=== PATIENT | female | born 1940 | race Caucasian/White ===

== ENCOUNTER 2020-12-18 14:15 | Emergency (ER) | payer MEDICARE, SELFPAY ==
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
[2020-12-18 14:44] VITALS: BP 142/67; BP 151/60; PULSE 80; RESP 16; TEMP 36.6; O2SAT 97; BMI 30.2
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
[2020-12-18 16:00] VITALS: BP 162/72; PULSE 76; RESP 16; TEMP 36.7; O2SAT 96
[2020-12-18 16:25] LABS: MANUAL DIFF FLAG NO
[2020-12-18 16:26] LABS: Basophils Percent Auto 0.2 % (0-2); Eosinophils Absolute Auto 0.1 X10*3/uL (0.0-0.4); Eosinophils Percent Auto 0.9 % (0-4); Hematocrit 36.8 % (37-47); Hemoglobin 11.4 g/dl (12.0-16.0); Imm Gran Pct Auto 0.8 % (0.0-0.4); Lymphocytes Absolute Auto 1.5 X10*3/uL (1.2-4.9); Lymphocytes Percent Auto 11.6 % (20-40); Mean Corpuscular Hemoglobin 26.1 pg (27.0-33.0); Mean Corpuscular Volume 84.2 fL (80-98); Mean Platelet Volume 9.2 fL (9.4-12.3); Monocytes Absolute Auto 0.8 X10*3/uL (0.1-1.2); Neutrophils Absolute Auto 10.3 X10*3/uL (2.0-8.3); Neutrophils Percent Auto 80.5 % (45-73); Platelet Count 259 X10*3/uL (160-400); Red Blood Count 4.37 X10*6/uL (4.20-5.50); Red Cell Distribution Width 16.5 % (11.0-16.0); White Blood Count 12.8 X10*3/uL (4.8-10.8)
--- NOTE | 2020-12-18 16:36 | PC.NURSE ---
PATIENT LABS WERE DRAWN BY THIS PCT .
[2020-12-18 16:40] LABS: Anion Gap 14 (12-20); Blood Urea Nitrogen 16 mg/dL (9-16); Calcium 8.4 mg/dL (8.4-10.2); Carbon Dioxide 23 mmol/L (22-29); Chloride 106 mmol/L (96-108); Creatinine Clr Calc Pharmacy 50.2; Estimated Glomerular Filt Rate > 60; Glucose Random 113 mg/dL (60-115); Lipase 18 U/L (8-78); Potassium 4.1 mmol/L (3.3-5.1); Sodium 139 mmol/L (135-145)
[2020-12-18 16:46] LABS: B Type Natriuretic Peptide 76 pg/mL (<100); Troponin-I High Sensitivity < 3.5 ng/L (<3.5-17.0)
[2020-12-18] MEDS: Lidocaine HCl 2 % MPF 5 ML VIAL 10 ML INFILTRATI (17:28)
--- NOTE | 2020-12-18 17:45 | PC.NURSE ---
Dr shah to bedside for traction to right hand and splint, pt awaits repeat imaging at this time. appears comfortable
[2020-12-18] MEDS: Morphine Sulfate 2 MG/ML CARTRIDGE IM (18:44)
[2020-12-18 18:47] VITALS: BP 143/50; PULSE 85; RESP 16; O2SAT 96
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
[2020-12-18 19:04] VITALS: BP 124/49; PULSE 74; RESP 16; TEMP 37.1; O2SAT 94
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
[2020-12-18 19:56] VITALS: BP 130/47; PULSE 84; RESP 16; TEMP 36.9; O2SAT 94
--- NOTE | 2020-12-18 19:58 | PC.NURSE ---
PATIENT WAS UNDRESS AND CHANGE INTO HOSPITAL ATTIRE BY PCT ROSY ,AND MY SELF
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
--- NOTE | 2020-12-18 20:07 | PC.NURSE ---
Pt placed on 2lpm via nc for low 02 sat 93% on ra s/p morphine given
--- NOTE | 2020-12-18 20:10 | PC.NURSE ---
PATIENT WAS ASSISTED ON BEDPAN BY THIS PCT .
[2020-12-18 20:34] LABS: COVID-19 Test Negative (Negative)
--- NOTE | 2020-12-18 20:52 | PC.NURSE ---
Report given to Byron HAMILTON
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
== END 2020-12-18 21:16 | disposition short-term general hospital (02) ==
PROVIDERS: Emergency Medicine; Emergency Provider Internal Medicine; PCP Internal Medicine
DX: S22.43XA Multiple fractures of ribs, bilateral, initial encounter for closed fracture (principal); S52.352A Displaced comminuted fracture of shaft of radius, left arm, initial encounter for closed fracture; S52.602A Unspecified fracture of lower end of left ulna, initial encounter for closed fracture; S22.20XA Unspecified fracture of sternum, initial encounter for closed fracture; S22.21XA Fracture of manubrium, initial encounter for closed fracture; V47.5XXA Car driver injured in collision with fixed or stationary object in traffic accident, initial encounter; W22.11XA Striking against or struck by driver side automobile airbag, initial encounter; Y93.89 Activity, other specified; Y92.414 Local residential or business street as the place of occurrence of the external cause; Y99.9 Unspecified external cause status; Z20.822 Contact with and (suspected) exposure to COVID-19
CPT/HCPCS: 29125; 36415; 70450; 71045; 71250; 72125; 73090; 73100; 73110; 73130; 80048; 83690; 83880; 84484; 85025; 87635; 93005; 96372; 99284; 99285; 99291; J2270

== ENCOUNTER 2023-08-07 19:49 | Observation (INO) | payer MEDICARE, SELFPAY ==
[2023-08-07] VITALS (7 sets, daily range): BP systolic 134–210; BP diastolic 65–108; PULSE 67–92; RESP 16; TEMP 36.8; O2SAT 96–99; BMI 33.3
--- NOTE | 2023-08-07 | ECG_ITS ---
Test Reason : CHEST PAIN Blood Pressure : / mmHG Vent. Rate : 090 BPM Atrial Rate : 090 BPM P-R Int : 168 ms QRS Dur : 068 ms QT Int : 354 ms P-R-T Axes : 060 028 049 degrees QTc Int : 433 ms Normal sinus rhythm with sinus arrhythmia Normal ECG Borderline ECG When compared with ECG of 18-DEC-2020 14:36, No significant change was found Referred By: Generic ED Physician Electronically Signed By:ION BHAKTA MD
--- NOTE | ~2023-08-07 | XR_ITS ---
EXAMINATION: XR CHEST CLINICAL INFORMATION: Chest pain and shortness of breath COMPARISON: Previous chest x-ray and chest CT from 2020 TECHNIQUE: Frontal view of the chest was obtained. FINDINGS: The cardiac silhouette does not appear enlarged. There is increased density over the heart likely corresponding to an esophageal hernia. Hilar and mediastinal contours are otherwise unremarkable. The lungs are clear. No pleural effusion or pneumothorax. Post kyphoplasty changes to the lower thoracic spine. XR/XR chest 1V IMPRESSION: No evidence for acute disease in the chest.
--- NOTE | ~2023-08-07 | US_ITS ---
EXAMINATION: US VENOUS ULTRASOUND WITH DOPPLER LOWER EXTREMITY, BILATERAL CLINICAL INFORMATION: Edema COMPARISON: None available. TECHNIQUE: Ultrasound of the deep veins is performed from the hip to the calf with compression sonography and color and pulse Doppler assessment. Spectral analysis with color-flow imaging is performed. FINDINGS: RIGHT: There is normal venous compression and respiratory variation and augmented flow. The visualized common femoral vein, superficial femoral vein, profunda femoral vein, popliteal vein, and the trifurcation region shows no evidence of deep venous thrombosis. There is no significant popliteal fossa cyst. LEFT: There is normal venous compression and respiratory variation and augmented flow. The visualized common femoral vein, superficial femoral vein, profunda femoral vein, popliteal vein, and the trifurcation region shows no evidence of deep venous thrombosis. There is no significant popliteal fossa cyst. US/US venous duplex LE BI IMPRESSION: No DVT demonstrated in the bilateral lower extremity.
--- NOTE | 2023-08-07 19:56 | PC.NURSE ---
on arrival pt has iv via ems; labs obtained. ekg obtained. Dr. Delgado notified of ekg abnormality. awaiting lab results.
--- NOTE | 2023-08-07 20:10 | ED.CHESTPAIN ---
HPI - Chest Pain General Chief Complaint: Chest Pain Stated Complaint: chest pressure, diff breathing,weak Time Seen by Provider: 08/07/23 20:01 Source: patient Mode of arrival: ambulatory Limitations: no limitations History of Present Illness HPI narrative: Patient'shistory of anxiety no history of coronary artery disease was resting watching TV all of a sudden noticed warm feeling with nausea and mid chest pressure started at 1900 also felt slight short of breath EMS came and gave her aspirin and nitroglycerin spray and patient felt better in an hour on arrival patient does not have any chest pain patient never had similar feeling in the past never had any cardiac workup done no palpitation. Patient denies any anxiety depression at the time of chest pain Related Data Allergies Allergy/AdvReac Type Severity Reaction Status Date / Time meperidine [From Demerol] Allergy Palpitation Verified 08/07/23 20:00 s shellfish derived AdvReac Weakness Verified 08/07/23 20:00 Review of Systems Review of Systems: Yes all other systems are reviewed and are negative [facility] Past Medical History Medical History GERD (gastroesophageal reflux disease) Surgical History 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, total Social History Social History Smoked in Last 30 Days: No Use of substances other than those prescribed or required for medical reasons: No Advance Directives: No Advance Directives Information Provided: No Do you have a plan to hurt others: No Plan Physical Exam Vital Signs: Vital Signs: Last Vital Signs Temp 98.2 F 08/07/23 19:55 Pulse 70 08/07/23 23:07 Resp 16 08/07/23 23:07 BP 149/68 H 08/07/23 23:07 Pulse Ox 96 08/07/23 23:07 O2 Del Method Room Air 08/07/23 23:07 BMI result Body Mass Index 33.3 Appearance: Alert. Oriented X3. No acute distress. Eyes: No pallor or icterus ENT: Pharynx normal. Oral Mucosa moist Neck: Normal inspection. Neck supple. CVS: Normal heart rate and rhythm. Pulses normal. Respiratory: No respiratory distress. Equal air entry bilateral, no wheezing/rales/rhonchi Abdomen: Soft and nontender. Bowel sounds are present, no mass palpable, no CVA tenderness Skin: Skin warm and dry. Normal skin color. Normal skin turgor. Extremities: No lower extremity edema. No calf tenderness Neuro: Oriented X 3. No motor deficit. Medications Administered Discontinued Medications Generic Name Dose Route Start Last Admin Trade Name Freq PRN Reason Stop Dose Admin Metoprolol Tartrate 25 mg 08/07/23 20:32 08/07/23 20:44 Metoprolol Tartrate 25 Mg Tablet PO 08/07/23 20:33 25 mg ONCE ONE Administration Protocol Nitroglycerin 0.5 inch 08/07/23 20:32 08/07/23 20:44 Nitroglycerin 2 % Oint 1 Gm Packet TRANSDERMA 08/07/23 20:33 0.5 inch ONCE ONE Administration Medical Decision Making Medical Decision Making [facility] Narrative: Patient 83 years old with significant chest discomfort without any acute ST elevation initial troponin was negative repeat troponin was 15.4 patient does not have any chest pain after arrival already received aspirin and nitro paste was applied beta jolly was given will admit patient to rule out ACS Differential Diagnosis Differential Diagnoses: The differential diagnosis associated with the presentation includes ACS/esophageal spasms/GERD/anxiety pneumonia/pneumothorax Admission/Observation Consideration of admission/observation: Escalation of care including admission/observation considered Consult Healthcare Provider Management of the patient was discussed with: Hospitalist Lab Data [facility] Lab Attestation statement: I reviewed the patient's lab results. 08/07/23 20:08 08/07/23 20:08 Labs: Lab Results 08/07/23 08/07/23 Range/Units 20:08 22:08 WBC 5.4 (4.8-10.8) X10*3/uL RBC 4.22 (4.20-5.50) X10*6/uL Hgb 10.4 L (12.0-16.0) g/dl Hct 33.5 L (37.0-47.0) % MCV 79.4 L (80.0-98.0) fL MCH 24.6 L (27.0-33.0) pg MCHC 31.0 (31.0-35.0) g/dl RDW 16.4 H (11.0-16.0) % Plt Count 237 (160-400) X10*3/uL MPV 8.3 L (9.4-12.3) fL Immature Gran % (Auto) 0.6 H (0.0-0.4) % Neut % (Auto) 39.8 L (45-73) % Lymph % (Auto) 47.4 H (20-40) % [place] % (Auto) 7.1 (2-11) % Eos % (Auto) 4.5 H (0-4) % Baso % (Auto) 0.6 (0-2) % Lymph # (Auto) 2.6 (1.2-4.9) X10*3/uL [place] # (Auto) 0.4 (0.1-1.2) X10*3/uL Eos # (Auto) 0.2 (0.0-0.4) X10*3/uL Baso # (Auto) 0.0 (0.0-0.2) X10*3/uL Abs Immat Gran (auto) 0.03 (0.00-0.03) X10*3/uL Absolute Neuts (auto) 2.2 (2.0-8.3) x10*3/uL Absolute Nucleated RBC 0.000 (0.0-0.012) X10*3/uL Nucleated RBC % (auto) 0.0 (0.0-0.2) /100WBC Sodium 141 (135-145) mmol/L Potassium 4.1 (3.3-5.1) mmol/L Chloride 104 (96-108) mmol/L Carbon Dioxide 29 (22-29) mmol/L Anion Gap 12 (12-20) BUN 16 (9-16) mg/dL Creatinine 0.81 (0.5-1.4) mg/dL Estim Creat Clear Calc 45.6 Estimated GFR > 60 Random Glucose 107 (60-115) mg/dL Calcium 8.8 (8.4-10.2) mg/dL Total Bilirubin 0.2 (0.0-1.0) mg/dL AST 28 (5-31) U/L ALT 15 (0-31) U/L Alkaline Phosphatase 106 (39-117) U/L Troponin I High Sens < 2.7 15.4 D (<3.5-17.0) ng/L B-Natriuretic Peptide 80 (<100) pg/mL Total Protein 7.1 (6.5-8.0) g/dL Albumin 3.9 (3.5-5.0) g/dL Independent Interpretation I performed an independent interpretation of an: EKG and Plain X-Ray Interpretation: Normal sinus rhythm heart rate 90 beats per minute normal interval normal axis no acute ST T wave changes no acute ischemia no ST elevation Radiology Impression Discussion of test interpretation with radiology: I have reviewed the radiologist's reading. Critical Care Time Critical Care Time Critical Care Time: Yes Total Critical Care Time: 45 Attestation: The patient was critically ill with a high probability of imminent or life threatening deterioration. I spent greater than ?45??minutes of discontinuous time evaluating the patient,delivering critical care at the bedside, discussing and evaluating pertinent data with consultants. Critical care time does not include time spent performing separately billable procedures or teaching. Total time spent performing critical care was 40???minutes. Discharge Plan Discharge Clinical Impression: Chest pain Patient Disposition: Admitted As Inpatient Print Language: Somali
[2023-08-07 20:12] LABS: MANUAL DIFF FLAG NO
[2023-08-07 20:15] LABS: Basophils Percent Auto 0.6 % (0-2); Eosinophils Absolute Auto 0.2 X10*3/uL (0.0-0.4); Eosinophils Percent Auto 4.5 % (0-4); Hematocrit 33.5 % (37.0-47.0); Hemoglobin 10.4 g/dl (12.0-16.0); Imm Gran Abs Auto 0.03 X10*3/uL (0.00-0.03); Imm Gran Pct Auto 0.6 % (0.0-0.4); Lymphocytes Absolute Auto 2.6 X10*3/uL (1.2-4.9); Lymphocytes Percent Auto 47.4 % (20-40); Mean Corpuscular Hemoglobin 24.6 pg (27.0-33.0); Mean Corpuscular Volume 79.4 fL (80.0-98.0); Mean Platelet Volume 8.3 fL (9.4-12.3); Monocytes Absolute Auto 0.4 X10*3/uL (0.1-1.2); Monocytes Percent Auto 7.1 % (2-11); Neutrophils Absolute Auto 2.2 x10*3/uL (2.0-8.3); Neutrophils Percent Auto 39.8 % (45-73); Platelet Count 237 X10*3/uL (160-400); Red Blood Count 4.22 X10*6/uL (4.20-5.50); Red Cell Distribution Width 16.4 % (11.0-16.0); White Blood Count 5.4 X10*3/uL (4.8-10.8)
[2023-08-07 20:29] LABS: Alanine Aminotransferase 15 U/L (0-31); Albumin Level 3.9 g/dL (3.5-5.0); Alkaline Phosphatase 106 U/L (39-117); Anion Gap 12 (12-20); Aspartate Amino Transferase 28 U/L (5-31); Bilirubin Total 0.2 mg/dL (0.0-1.0); Blood Urea Nitrogen 16 mg/dL (9-16); Calcium 8.8 mg/dL (8.4-10.2); Carbon Dioxide 29 mmol/L (22-29); Chloride 104 mmol/L (96-108); Creatinine Clr Calc Pharmacy 45.6; Estimated Glomerular Filt Rate > 60; Glucose Random 107 mg/dL (60-115); Potassium 4.1 mmol/L (3.3-5.1); Sodium 141 mmol/L (135-145); Total Protein 7.1 g/dL (6.5-8.0)
[2023-08-07 20:35] LABS: B Type Natriuretic Peptide 80 pg/mL (<100)
[2023-08-07] MEDS: Metoprolol Tartrate 25 MG TABLET PO (20:44)
[2023-08-07] MEDS: Nitroglycerin 2 % Oint 1 GM Packet 0.5 INCH TRANSDERMA (20:44)
[2023-08-07 20:52] LABS: Troponin-I High Sensitivity < 2.7 ng/L (<3.5-17.0)
--- NOTE | 2023-08-07 22:20 | PC.NURSE ---
pt reports pressure has improved and is intermittent. repeat trop sent to lab. at bedside. vss. call dean within reach.
[2023-08-07 22:42] LABS: Troponin-I High Sensitivity 15.4 ng/L (<3.5-17.0)
--- NOTE | 2023-08-08 01:54 | PC.NURSE ---
pt ambulating around hallway with with steady gait, no acute distress noted. given recliner at this time.
--- NOTE | 2023-08-08 03:12 | PM.IMHP ---
History of Present Illness Date of Service: 08/08/23 Attending physician on admission: Kenrick Jordan Chief Complaint: Chest pressure Kasie Kessler is 83 years old woman with past medical history significant for GERD was brought to the emergency department complaining of event of sudden onset of chest pain that started last night when she was ready to eat it was associated with shortness on breath. She localized the pain in the middle of the chest without radiation and described it as a pressure. She denied any associated headache, sweating, nausea, vomiting, cough, fevers chills. She denied any acute gastrointestinal or genitourinary symptoms. She denied tobacco smoking, alcohol abuse or illicit drug use. Patient denies history of heart disease, stroke, hypertension, hyperlipidemia or diabetes mellitus. She received treatment with nitroglycerin and aspirin by EMS. She thinks that the nitroglycerin head to improve pain. On my evaluation she was free of chest pain. In the ED, she was found to have hypertension (max 190/76). Blood workup showed no leukocytosis. Hemoglobin is 10.4 (it was 11.4 in 2020) with elevated MCV and RDW. Platelets are normal. LFTs, renal function and lipase are normal First trop is 2.7 and most recent is 15.4. BNP is normal. CXR is negative. ECG showed normal sinus rhythm with sinus arrhythmia with a obvious significant ischemic change. ED tx: Nitroglycerin 0.5 mg transdermal, metoprolol 25 mg p.o. Review of Systems Review of Systems: All 12 systems were reviewed and normal except as noted in HPI. [facility] Medical History (Updated 08/08/23 @ 03:30 by Kenrick Jordan MD) Osteoporosis GERD (gastroesophageal reflux disease) Surgical History 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, total Social History Smoked in Last 30 Days: No Use of substances other than those prescribed or required for medical reasons: No Advance Directives: No Advance Directives Information Provided: No Do you have a plan to hurt others: No Plan Meds Allergies Allergy/AdvReac Type Severity Reaction Status Date / Time meperidine [From Demerol] Allergy Palpitation Verified 08/07/23 20:00 s shellfish derived AdvReac Weakness Verified 08/07/23 20:00 Active Medications: Current Medications Acetaminophen (Acetaminophen 325 Mg Tablet) 975 mg PO Q6H PRN PRN Reason: mild pain, headache or fever Aspirin (Aspirin Enteric Coated 81 Mg Tablet.Dr) 81 mg PO DAILY [facility] Omeprazole (Omeprazole 20 Mg Capsule.Dr) 20 mg PO DAILY [facility] Ropinirole HCl (Ropinirole Hcl 0.25 Mg Tablet) 0.25 mg PO ONCE PRN PRN Reason: Restless legs Sodium Chloride (0.9 % Sodium Chloride Flush 3 Ml Syringe) 3 ml IVFLUSH QSHIFT OPAL Physical Exam Vital Signs and Narrative: Vital Signs: Last Vital Signs Temp 98.2 F 08/07/23 19:55 Pulse 70 08/07/23 23:07 Resp 16 08/07/23 23:07 BP 149/68 H 08/07/23 23:07 Pulse Ox 96 08/07/23 23:07 O2 Del Method Room Air 08/07/23 23:07 BMI result Body Mass Index 33.3 Constitutional - Awake and Alert, No apparent distress Eyes - PERRLA, EOMI Heart - RRR Lungs - Normal lung expansion, Normal respiratory effort, No respiratory distress, CTA bilaterally Abdomen - NT / ND; +BS; No rebound or guarding Extremities - Pitting edema to the lower extremities. Musculoskeletal - Normal inspection, normal ROM Skin - Warm/Dry Neurological - Alert & oriented x3. No focal weakness. Normal speech. Psychological - Appropriate affect Results Labs 08/07/23 20:08 08/07/23 20:08 Labs: Laboratory Results - last 24 hr 08/07/23 08/07/23 20:08 22:08 MCV 79.4 L MCH 24.6 L MCHC 31.0 RDW 16.4 H Plt Count 237 MPV 8.3 L Immature Gran % (Auto) 0.6 H Neut % (Auto) 39.8 L Lymph % (Auto) 47.4 H [place] % (Auto) 7.1 Eos % (Auto) 4.5 H Baso % (Auto) 0.6 Lymph # (Auto) 2.6 [place] # (Auto) 0.4 Eos # (Auto) 0.2 Baso # (Auto) 0.0 Abs Immat Gran (auto) 0.03 Absolute Neuts (auto) 2.2 Absolute Nucleated RBC 0.000 Nucleated RBC % (auto) 0.0 Anion Gap 12 Estim Creat Clear Calc 45.6 Estimated GFR > 60 Random Glucose 107 Calcium 8.8 Total Bilirubin 0.2 AST 28 ALT 15 Alkaline Phosphatase 106 Troponin I High Sens < 2.7 15.4 D B-Natriuretic Peptide 80 Total Protein 7.1 Albumin 3.9 Imaging Radiologist's Impressions: Impressions Chest X-Ray 08/07/23 20:21 IMPRESSION: No evidence for acute disease in the chest. Assessment and Plan (1) Chest pain: Qualifiers: Chest pain type: unspecified Qualified Code(s): R07.9 - Chest pain, unspecified Status: Acute (2) Bilateral leg edema: Status: Acute (3) Microcytic anemia: Status: Acute (4) Restless legs: Status: Acute Plan Kasie Kessler is 83 years old woman presents with: Chest pain. Keeping observation. Telemetry. Aspirin 81 mg p.o. daily. Check hemoglobin A1c and lipid panel. Repeat troponin. Obtain TTE. Cardiology consult for further recommendations. Lower extremity edema, bilateral. Bilateral LE venous US. GERD. Continue PPI. Microcytic anemia. Likely iron deficiency. Anemia workup. Need to follow by GI as an outpatient. Restless legs. Likely restless legs syndrome (associated to iron deficiency). Requip at bedtime as needed. Osteoporosis. Taking Fosamax weekly. Code status: Full DVT prophylaxis: SCDs. Early ambulation. Quality Stroke Does the patient have a stroke diagnosis?: No VTE Prior VTE?: No VTE Risk Level:: Medical - moderate - high VTE Device Contraindication: N/A - Device Ordered VTE Drug Contraindication: Treatment Not Indicated
[2023-08-08 03:18] VITALS: BP 121/48; PULSE 68; RESP 18; TEMP 36.8; O2SAT 94
[2023-08-08 06:19] VITALS: BP 131/53; PULSE 73; RESP 18; TEMP 36.8; O2SAT 96
[2023-08-08 06:21] LABS: MANUAL DIFF FLAG NO
[2023-08-08 06:25] LABS: Basophils Percent Auto 0.4 % (0-2); Eosinophils Absolute Auto 0.1 X10*3/uL (0.0-0.4); Eosinophils Percent Auto 2.5 % (0-4); Hematocrit 31.1 % (37.0-47.0); Hemoglobin 9.6 g/dl (12.0-16.0); Imm Gran Abs Auto 0.01 X10*3/uL (0.00-0.03); Imm Gran Pct Auto 0.2 % (0.0-0.4); Immature Retic Fraction 23.2 % (3.0-15.9); Lymphocytes Absolute Auto 1.8 X10*3/uL (1.2-4.9); Lymphocytes Percent Auto 37.9 % (20-40); Mean Corpuscular HGB Conc 30.9 g/dl (31.0-35.0); Mean Corpuscular Hemoglobin 23.6 pg (27.0-33.0); Mean Corpuscular Volume 76.4 fL (80.0-98.0); Mean Platelet Volume 8.6 fL (9.4-12.3); Monocytes Absolute Auto 0.4 X10*3/uL (0.1-1.2); Neutrophils Absolute Auto 2.4 x10*3/uL (2.0-8.3); Platelet Count 227 X10*3/uL (160-400); Red Blood Count 4.07 X10*6/uL (4.20-5.50); Red Cell Distribution Width 16.5 % (11.0-16.0); Reticulocyte Percent 1.1 % (0.5-1.8); Reticulocytes Absolute 0.042 X10*6/uL (0.026-0.095); White Blood Count 4.8 X10*3/uL (4.8-10.8)
[2023-08-08 06:31] LABS: D Dimer High Sensitivity 263 NG/ML
[2023-08-08 06:35] LABS: Estimated Average Glucose 120 mg/dL; Hemoglobin A1c % 5.8 % (<6.0)
[2023-08-08 06:38] LABS: Cholesterol 204 mg/dL (<200); HDL Cholesterol 63 mg/dL (>40); LDL Cholesterol Calculated 122 mg/dL (<100); Triglycerides 96 mg/dL (<150)
[2023-08-08 06:43] LABS: Troponin-I High Sensitivity 10.4 ng/L (<3.5-17.0)
[2023-08-08 06:46] LABS: Anion Gap 9 (12-20); Blood Urea Nitrogen 14 mg/dL (9-16); Carbon Dioxide 28 mmol/L (22-29); Chloride 106 mmol/L (96-108); Creatinine Clr Calc Pharmacy 51.9; Estimated Glomerular Filt Rate > 60; Glucose Random 113 mg/dL (60-115); Iron 43 mcg/dL (30-160); Percent Iron Saturation 14 % (15-50); Sodium 139 mmol/L (135-145); Total Iron Binding Capacity 311 mcg/dL (228-428); Unsaturated Iron Binding 268 ug/dL
[2023-08-08 06:47] LABS: Reflex LDLD? No
[2023-08-08 06:57] LABS: Ferritin 13 ng/mL (10-250)
[2023-08-08 07:10] LABS: Folate 14.3 ng/mL (> or = 4.0); Vitamin B12 1087 pg/mL (200-900)
--- NOTE | 2023-08-08 09:00 | P.CONCA_ITS ---
History of Present Illness History of Present Illness Date of Service: 08/08/23 Requesting physician: Sadiq Amin Consult reason: chest pain Chief complaint: Chest pain Narrative: I was consulted to see Jacey in cardiology consultation today for acute onset chest discomfort. She has a pleasant 83-year-old woman with prior history of restless leg syndrome, acid reflux disease with hiatal hernia, came to the hospital with sudden-onset chest discomfort. She says she was in usual state of health yesterday, prepping something to eat with her not in any severe distress. Suddenly said that she felt like she had to go to the bathroom and got lightheaded. Then she got short of breath and sudden-onset retrosternal chest discomfort were described as pressure. Symptoms persisted and called 911. EN route to the hospital she did get sublingual nitroglycerin and in the hospital she got nitroglycerin. Symptoms gradually subsided over 2 hours. She had mild chest pressure persistent for some time. EKG on initial presentation was within normal limits. Her troponins have been flat and normal. Symptoms have remained resolved. She does have intermittent symptoms of dysphagia and her food sometimes gets stuck. She does take Prilosec. Does see GI physician at [facility]. She has never had any significant cardiac issues in the past. No recent exertional symptoms. Denies any lightheadedness, syncope. Review of Systems 2 Constitutional: Constitutional: Reports no additional constitutional complaints Eyes: Eyes: Reports no additional eye complaints ENT: Reports system reviewed and no additional complaints, except as documented Cardiovascular: Cardiovascular: Reports no additional cardiovascular complaints Respiratory: Respiratory: Reports no additional respiratory complaints Gastrointestinal: Gastrointestinal: Reports no additional gastrointestinal complaints Genitourinary: Genitourinary: Reports no additional female genitourinary complaints Musculoskeletal: Musculoskeletal: Reports no additional musculoskeletal complaints Integumentary/Breasts: Skin/Breast: Reports system reviewed and no additional complaints, except as docu Psychiatric: Psychiatric: Reports no additional psychiatric complaints PMFSH Past Medical History Medical History Osteoporosis GERD (gastroesophageal reflux disease) Surgical History Surgical History 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, total Social History Social History Patient Tobacco Use Status: Never used Tobacco Smoked in Last 30 Days: No Use of substances other than those prescribed or required for medical reasons: No Advance Directives: No Advance Directives Information Provided: No Do you have a plan to hurt others: No Plan Nutrition Risks: No Nutritional Risk Meds Allergies Allergy/AdvReac Type Severity Reaction Status Date / Time meperidine [From Demerol] Allergy Palpitation Verified 08/07/23 20:00 s shellfish derived AdvReac Weakness Verified 08/07/23 20:00 Active Medications: Current Medications Acetaminophen (Acetaminophen 325 Mg Tablet) 975 mg PO Q6H PRN PRN Reason: mild pain, headache or fever Aspirin (Aspirin Enteric Coated 81 Mg Tablet.Dr) 81 mg PO DAILY OPAL Omeprazole (Omeprazole 20 Mg Capsule.Dr) 20 mg PO DAILY OPAL Ropinirole HCl (Ropinirole Hcl 0.25 Mg Tablet) 0.25 mg PO ONCE PRN PRN Reason: Restless legs Sodium Chloride (0.9 % Sodium Chloride Flush 3 Ml Syringe) 3 ml IVFLUSH QSHIFT [facility] Physical Exam 2 Vital Signs: Vital Signs: Last Vital Signs Temp 98.3 F 08/08/23 06:19 Pulse 73 08/08/23 06:19 Resp 18 08/08/23 06:19 BP 131/53 L 08/08/23 06:19 Pulse Ox 96 08/08/23 06:19 O2 Del Method Room Air 08/08/23 06:19 BMI result Body Mass Index 33.3 Const: General: cooperative, comfortable, no acute distress, alert and awake Nutritional Appearance: obese Orientation/consciousness: patient oriented x3 Limitations: no limitations HEENT: Head: Yes normocephalic and Yes atraumatic Neck: Neck: Yes trachea midline, Yes supple and Yes no JVD Chest: Chest palpation & inspection: abnormal inspection of the chest kyphotic Resp: Effort & Inspection: normal respiratory effort Auscultation: clear to auscultation bilaterally Cardio: Jugular venous distension: no JVD Palpation: normal PMI Rate: r egular rate Rhythm: regular rhythm Heart sounds: S1 normal heart sound present, S2 normal heart sound present, no click, no gallops, no murmurs and no rubs GI: Auscultation: normal bowel sounds Skin: General skin exam: no rashes or lesions noted Neuro: General: patient oriented x3 and no focal motor deficits Extrem: General: Yes no clubbing, cyanosis or edema Psych: Appearance: grossly normal Objective Labs and Meds 08/08/23 06:15 08/08/23 06:15 Lab results: Laboratory Results - last 24 hr 08/07/23 08/07/23 08/08/23 20:08 22:08 06:15 WBC 5.4 4.8 RBC 4.22 4.07 L Hgb 10.4 L 9.6 L Hct 33.5 L 31.1 L MCV 79.4 L 76.4 L MCH 24.6 L 23.6 L MCHC 31.0 30.9 L RDW 16.4 H 16.5 H Plt Count 237 227 MPV 8.3 L 8.6 L Immature Gran % (Auto) 0.6 H 0.2 Neut % (Auto) 39.8 L 50.0 Lymph % (Auto) 47.4 H 37.9 [place] % (Auto) 7.1 9.0 Eos % (Auto) 4.5 H 2.5 Baso % (Auto) 0.6 0.4 Lymph # (Auto) 2.6 1.8 [place] # (Auto) 0.4 0.4 Eos # (Auto) 0.2 0.1 Baso # (Auto) 0.0 0.0 Abs Immat Gran (auto) 0.03 0.01 Absolute Neuts (auto) 2.2 2.4 Absolute Nucleated RBC 0.000 0.000 Nucleated RBC % (auto) 0.0 0.0 Absolute Retic 0.042 Percent Retic 1.1 Immature Retic Fraction 23.2 H Retic Hgb Equivalent 24.0 L D-Dimer High Sensitivty 263 Sodium 141 139 Potassium 4.1 4.0 Chloride 104 106 Carbon Dioxide 29 28 Anion Gap 12 9 L BUN 16 14 Creatinine 0.81 0.71 Estim Creat Clear Calc 45.6 51.9 Estimated GFR > 60 > 60 Random Glucose 107 113 Estimat Average Glucose 120 Hemoglobin A1c % 5.8 Calcium 8.8 9.0 Iron 43 TIBC 311 % Saturation 14 L Unsat Iron Binding 268 Ferritin 13 Total Bilirubin 0.2 AST 28 ALT 15 Alkaline Phosphatase 106 Troponin I High Sens < 2.7 15.4 D 10.4 B-Natriuretic Peptide 80 Total Protein 7.1 Albumin 3.9 Triglycerides 96 Cholesterol 204 H LDL Cholesterol, Calc 122 H HDL Cholesterol 63 Vitamin B12 1087 H Folate 14.3 Imaging Radiologist's impression: Impressions Chest X-Ray 08/07/23 20:21 IMPRESSION: No evidence for acute disease in the chest. Assessment and Plan (1) Chest pain: Qualifiers: Chest pain type: unspecified Qualified Code(s): R07.9 - Chest pain, unspecified Status: Acute Prolonged chest pain with negative troponins and negative EKG for ischemia. Risk factor of advanced age and mild hypertension. Likelihood of acute coronary syndrome is low. Although given her age will require workup. Would suggest outpatient vasodilating myocardial perfusion imaging in near future. Also suggest an echocardiogram. I think her symptoms are probably GI related related to esophageal spasm. She does have history of acid reflux as well as hiatal hernia. Advised to follow-up with her own GI in the near future. Meanwhile increase Prilosec to 20 mg b.i.d. on discharge. Can add low-dose amlodipine 2.5 mg given her slightly elevated blood pressure. I think patient can be safely discharged home. This was discussed with the patient and she is comfortable with this decision. Will follow up with testing in near future Procedures Date of Service Date of Service: 08/08/23
--- NOTE | 2023-08-08 09:57 | P.DS_ITS ---
DS: Providers Provider Date of Service: 08/08/23 Date of admission: 08/08/23 03:02 Primary care physician: Unknown Physician Consults: 08/08/23 03:06 Consult to Cardiology Routine Consulting Provider: [facility] Reason for consultation: Chest pain Has provider been notified: Yes DS: Diagnosis Discharge Diagnosis (1) Chest pain: Status: Acute DS: Summary Hospital Course Hospital Course: Admission note Kasie Kessler is 83 years old woman with past medical history significant for GERD was brought to the emergency department complaining of event of sudden onset of chest pain that started last night when she was ready to eat it was associated with shortness on breath. She localized the pain in the middle of the chest without radiation and described it as a pressure. She denied any associated headache, sweating, nausea, vomiting, cough, fevers chills. She denied any acute gastrointestinal or genitourinary symptoms. She denied tobacco smoking, alcohol abuse or illicit drug use. Patient denies history of heart disease, stroke, hypertension, hyperlipidemia or diabetes mellitus. She received treatment with nitroglycerin and aspirin by EMS. She thinks that the nitroglycerin head to improve pain. On my evaluation she was free of chest pain. In the ED, she was found to have hypertension (max 190/76). Blood workup showed no leukocytosis. Hemoglobin is 10.4 (it was 11.4 in 2020) with elevated MCV and RDW. Platelets are normal. LFTs, renal function and lipase are normal First trop is 2.7 and most recent is 15.4. BNP is normal. CXR is negative. ECG showed normal sinus rhythm with sinus arrhythmia with a obvious significant ischemic change. ED tx: Nitroglycerin 0.5 mg transdermal, metoprolol 25 mg p.o. Hospital course The patient was observed for chest pain. She had prolonged chest pain with negative troponins and negative EKG for ischemia. noticed to have elevated BP reading on presentation. Seen by emergency management director who is suggestive of outpatient myocardial perfusion study and stress testing. Also an echocardiogram. US Lower extremities reported negative for DVT but official report not posted yet. It seems likely her symptoms could be related to esophageal spasm. Increase Omeprazole on discharge to bid Discharge Plan Start amlodipine 2.5 mg daily for high blood pressure. If you notice lightheadedness hold it. Increase Omeprazole to twice daily for the next month Follow with dr Marsh as outpatient for Stress testing. Time Attestation Discharge Coordination Time (in mins): 24 Quality: Safe Use of Opioids Does Pt have an Active Cancer Diagnosis on the Problem List?: No Quality: Stroke Does the patient have a stroke diagnosis?: No Physical Exam Vital Signs: Vital Signs: Last Vital Signs Temp 98.3 F 08/08/23 06:19 Pulse 73 08/08/23 06:19 Resp 18 08/08/23 06:19 BP 131/53 L 08/08/23 06:19 Pulse Ox 96 08/08/23 06:19 O2 Del Method Room Air 08/08/23 06:19 BMI result Body Mass Index 33.3 Const: Other: Constitutional : Awake, interactive, not in distress Neck : Normal inspection, Supple Cardiovascular : RRR, no JVP, trace bilateral lower extremity edema Respiratory : good bilateral air entry, no crackles, wheezes or rhonchi Gastrointestinal: soft, lax, Normal bowel sounds, Non tender Skin : Warm, Dry Neurological : Alert & oriented x3, No focal deficit , CN 2-12 within normal DS: Data Data Completed and Pending Labs on day of discharge: Laboratory Results - last 24 hr 08/07/23 08/07/23 08/08/23 20:08 22:08 06:15 WBC 5.4 4.8 RBC 4.22 4.07 L Hgb 10.4 L 9.6 L Hct 33.5 L 31.1 L MCV 79.4 L 76.4 L MCH 24.6 L 23.6 L MCHC 31.0 30.9 L RDW 16.4 H 16.5 H Plt Count 237 227 MPV 8.3 L 8.6 L Immature Gran % (Auto) 0.6 H 0.2 Neut % (Auto) 39.8 L 50.0 Lymph % (Auto) 47.4 H 37.9 [place] % (Auto) 7.1 9.0 Eos % (Auto) 4.5 H 2.5 Baso % (Auto) 0.6 0.4 Lymph # (Auto) 2.6 1.8 [place] # (Auto) 0.4 0.4 Eos # (Auto) 0.2 0.1 Baso # (Auto) 0.0 0.0 Abs Immat Gran (auto) 0.03 0.01 Absolute Neuts (auto) 2.2 2.4 Absolute Nucleated RBC 0.000 0.000 Nucleated RBC % (auto) 0.0 0.0 Absolute Retic 0.042 Percent Retic 1.1 Immature Retic Fraction 23.2 H Retic Hgb Equivalent 24.0 L D-Dimer High Sensitivty 263 Sodium 141 139 Potassium 4.1 4.0 Chloride 104 106 Carbon Dioxide 29 28 Anion Gap 12 9 L BUN 16 14 Creatinine 0.81 0.71 Estim Creat Clear Calc 45.6 51.9 Estimated GFR > 60 > 60 Random Glucose 107 113 Estimat Average Glucose 120 Hemoglobin A1c % 5.8 Calcium 8.8 9.0 Iron 43 TIBC 311 % Saturation 14 L Unsat Iron Binding 268 Ferritin 13 Total Bilirubin 0.2 AST 28 ALT 15 Alkaline Phosphatase 106 Troponin I High Sens < 2.7 15.4 D 10.4 B-Natriuretic Peptide 80 Total Protein 7.1 Albumin 3.9 Triglycerides 96 Cholesterol 204 H LDL Cholesterol, Calc 122 H HDL Cholesterol 63 Vitamin B12 1087 H Folate 14.3 Imaging Venous US: Radiologist's impression: ITS Impressions Chest X-Ray 08/07/23 20:21 IMPRESSION: No evidence for acute disease in the chest. Discharge Plan Discharge Anticipated Discharge Date/Time: 08/08/23 09:46 Patient Disposition: Home, Self-Care Discharge Diagnosis: Chest pain Referrals: Physician,Unknown J [Primary Care Provider] - 1 Week Discharge Medications: New omeprazole 20 mg Capsule,Delayed Release(Dr/Ec) 20 mg PO BID Qty: 120 0RF amlodipine 2.5 mg tablet 2.5 mg PO DAILY Qty: 90 0RF No Action multivitamin Tablet 1 tab PO DAILY alendronate 70 mg tablet 70 mg PO MO lorazepam 0.5 mg tablet 0.5 mg PO BID PRN (Reason: anxiety) cyanocobalamin (vitamin B-12) 500 mcg Tablet 500 mcg PO DAILY vitamin E 268 mg (400 unit) Capsule 268 mg PO DAILY echinacea 125 mg Capsule 250 mg PO DAILY Rx Instructions: administer with meals cholecalciferol (vitamin D3) [Vitamin D3] 25 mcg (1,000 unit) Tablet 25 mcg PO DAILY Discharge Orders: Discharge Order (Routine); Ordered 08/08/23 Ordered By: Sadiq Amin Diet: Advance to usual diet Activity on Discharge: As tolerated Stand Alone Forms: Patient Portal Discharge page Print Language: Italian Care Plan Goals: Read below Health Concerns: Read below Plan of Treatment: Read below Assessment: You were admitted to the hospital for evaluation of chest pain. you were seen by emergency management director dr Marsh who would like to do an outpatient stress test for you. Start amlodipine 2.5 mg daily for high blood pressure. If you notice lightheadedness hold it. Increase Omeprazole to twice daily for the next month Follow with dr Marsh as outpatient for Stress testing. Discharge Date/Time: 08/08/23 10:16
[2023-08-08 10:26] VITALS: BP 127/64; PULSE 71; RESP 18; TEMP 36.9
--- NOTE | 2023-08-08 10:55 | PHA.MEDREC ---
Pharmacy Consult ? Medication Reconciliation Pharmacy has completed the medication reconciliation. spoke with patient to confirm medications.
== END 2023-08-08 10:16 | disposition home or self-care (01) ==
LOC: HO.ED 08-08 02:03 → HO.EDOVER 08-08 04:31 → HO.IMC 08-08 08:15
PROVIDERS: Admitting Provider Internal Medicine; Emergency Provider Internal Medicine; Visit Provider Student in an Organized Health Care Education/Training Program
DX: R07.9 Chest pain, unspecified (principal); R60.0 Localized edema; D50.9 Iron deficiency anemia, unspecified; G25.81 Restless legs syndrome; R06.02 Shortness of breath; K21.9 Gastro-esophageal reflux disease without esophagitis; D53.9 Nutritional anemia, unspecified; M81.0 Age-related osteoporosis without current pathological fracture; I10 Essential (primary) hypertension
CPT/HCPCS: 36415; 71045; 80048; 80053; 80061; 82607; 82728; 82746; 83036; 83540; 83880; 84484; 85025; 85045; 85379; 93005; 93970; 99222; 99285

== ENCOUNTER → 2023-08-07 19:56 | Outpatient (BNV) | payer MEDICARE, BC, SELFPAY | PROVIDERS: Admitting Provider Internal Medicine; Emergency Provider Internal Medicine; Visit Provider Internal Medicine Cardiovascular Disease | DX: I49.8 Other specified cardiac arrhythmias (principal) | CPT/HCPCS: 93010 ==

== ENCOUNTER → 2023-08-07 21:06 | Outpatient (BNV) | payer MEDICARE, SELFPAY | PROVIDERS: Emergency Provider Internal Medicine; Visit Provider Internal Medicine | DX: R07.9 Chest pain, unspecified (principal); R60.0 Localized edema; D50.9 Iron deficiency anemia, unspecified; G25.81 Restless legs syndrome | CPT/HCPCS: 99223 ==

== ENCOUNTER → 2023-08-08 03:02 | Outpatient (BNV) | payer MEDICARE, SELFPAY | PROVIDERS: Admitting Provider Internal Medicine; Emergency Provider Internal Medicine; Visit Provider Internal Medicine Cardiovascular Disease | DX: R07.9 Chest pain, unspecified (principal) | CPT/HCPCS: 99222 ==

== ENCOUNTER → 2023-09-21 08:29 | Outpatient (REF) | payer MEDICARE, SELFPAY ==
--- NOTE | ~2023-09-21 | NM_ITS ---
Myocardial perfusion study Indication: Chest pain to evaluate for myocardial ischemia Technique: The patient was brought in for a Lexiscan perfusion study on 09/21/2023. Patient performed low-level exercise and was injected 0.4 mg of Lexiscan intravenously. Within a minute of injection, 25 mCi of sestamibi was given intravenously. Images were obtained using the SPECT gamma camera interlaced with the gating device. Images were obtained in supine position. Resting perfusion study was performed on 09/24/2023. Patient was administered 25 mCi of sestamibi intravenously at rest. Images were then obtained in supine position. Images obtained with and without CT attenuation. Total DLP 126 mGy-cm Images were processed with the software and compared side to side in short axis, horizontal long axis and vertical long axis views. Findings: Both stress and rest perfusion study are suboptimal due to intense subdiaphragmatic uptake interfering with inferior wall uptake, more prominent on the resting perfusion study. The stress perfusion study showed non attenuated images show some thinning of the lateral wall of the LV myocardium otherwise normal perfused. Attenuation corrected images show overall normal uptake of radiotracer in all segments of LV myocardium. Left ventricle hypertrophy may be present.. The gated study shows normal LV systolic function with calculated LVEF of 70%. LV cavity is normal in size. The gated study shows normal systolic wall thickening and contraction of segments. Resting study shows no significant change compared to stress perfusion study. Gating at rest reveals normal systolic wall motion with ejection fraction at greater than 60%. The findings are consistent with likely normal myocardial perfusion. NM/NM cardiolite stress test Impression: 1. Myocardial perfusion imaging study shows likely normal myocardial perfusion 2. Gated LVEF is 70% 3. Transient ischemic dilatation not present EKG is nondiagnostic for ischemia
--- NOTE | 2023-09-21 08:34 | CA_ITS ---
Acquisition Time: 2023-09-21 08:42:20 Total Exercise Time: 00:02:00 Test Indications: CHEST PAIN Medications: Protocol: LEXISCAN Max HR: 086 BPM 63% of Pred: 136 BPM Max BP: 146/062 mmHG Max Work Load: 1.0 METS Pharmacological stress test with Lexiscan injeciton while sitting and kicking her legs, without anginal symtpoms, with isolated PACs, with hypotensive response to injection, with nondiagnsoiitic EKGs. Aminophylline 75mg IVP given to reverse Lexiscan. Nuclear images pending. Test reviewed with Dr. Reyes. Referred By: Adolph Marsh Overread By: Anna Beckwith
== END ==
LOC: HO.CARD 08:29
PROVIDERS: PCP Family Medicine; Visit Provider Internal Medicine Cardiovascular Disease
DX: R07.9 Chest pain, unspecified (principal); S52.532A Colles' fracture of left radius, initial encounter for closed fracture
CPT/HCPCS: 78452; 93017; A9500; J0280; J2785

== ENCOUNTER → 2023-09-21 08:34 | Outpatient (BNV) | payer MEDICARE, SELFPAY | PROVIDERS: PCP Family Medicine; Visit Provider Nurse Practitioner | DX: R07.9 Chest pain, unspecified (principal) | CPT/HCPCS: 78452; 93016; 93018 ==